=== PATIENT | male | born 1955 ===

== ENCOUNTER → 2018-09-05 19:15 | Outpatient (ROUT) | payer BC, SELFPAY ==
[2018-09-05 19:53] LABS: Cholesterol 200 mg/dL (140-199); HDL Cholesterol 58 mg/dL (40-60); LDL Cholesterol Calculated 123 mg/dL (<100); Triglycerides 96 mg/dL (35-150)
== END ==
PROVIDERS: Visit Provider Family Medicine
DX: Z13.6 Encounter for screening for cardiovascular disorders (principal)
CPT/HCPCS: 36415; 80061